=== PATIENT | male | born 1930 | race Caucasian/White ===

== ENCOUNTER → 2017-06-12 | Outpatient (CLI) | payer BC ==
[~2017-06-12] MED LIST: ALFU10TA2 PO; ASPEC81 PO; DUTA0.5C PO; LEVOTHYROXINE PO
[2017-06-12 15:16] LABS: BASO % 1.3 %; BASO ABS # 0.08 K/uL (0-0.2); COMPLETE YES; EOS % 5.9 %; HEMATOCRIT 39.8 % (42-52); IG% 0.2 %; LYMPH % 23.8 %; MEAN CELL VOLUME 93.2 fL (80-100); MEAN CORPUSCULAR HEMOGLOBIN 30.2 pg (25-34); MEAN CORPUSCULAR HGB CONC 32.4 g/dl (32-36); MONO % 11.1 %; NEUT % 57.7 %; PLATELET COUNT 223 K/uL (130-400); RED BLOOD COUNT 4.27 M/uL (4.7-6.1); WHITE BLOOD COUNT 6.31 K/uL (4.8-10.8)
[2017-06-12 15:27] LABS: ALT/SGPT 30 U/L (12-78); AST/SGOT 20 U/L (15-37); BLOOD UREA NITROGEN 23 mg/dl (7-18); BUN/CREATININE RATIO 15.5 (10-20); CALCIUM 8.9 mg/dl (8.5-10.1); CARBON DIOXIDE 26 mmol/L (21-32); CHLORIDE 107 mmol/L (98-107); CREATININE 1.52 mg/dl (0.60-1.40); GLUCOSE 100 mg/dl (70-99); POTASSIUM 3.8 mmol/L (3.5-5.1); SODIUM 142 mmol/L (136-145); URIC ACID 7.9 mg/dl (2.6-7.2)
[2017-06-12 15:37] LABS: ALB/GLOB RATIO 1.2 (0.9-2); ALKALINE PHOSPHATASE 56 U/L (45-117)
== END | disposition home or self-care (01) ==
LOC: C.LABSPEC 14:47
PROVIDERS: ATTEND Internal Medicine
DX: N18.9 Chronic kidney disease, unspecified (principal); M10.9 Gout, unspecified; E03.9 Hypothyroidism, unspecified

== ENCOUNTER → 2017-12-10 | Outpatient (CLI) | payer BC ==
[2017-12-10 12:47] LABS: BASO % 1.4 %; BASO ABS # 0.09 K/uL (0-0.2); EOS % 6.3 %; HEMATOCRIT 41.7 % (42-52); HEMOGLOBIN 13.9 g/dL (14.0-18.0); IG# 0.02 K/uL (0.00-0.02); LYMPH % 25.8 %; LYMPH ABS # 1.64 K/uL (1.2-3.4); MEAN CELL VOLUME 89.1 fL (80-100); MEAN CORPUSCULAR HEMOGLOBIN 29.7 pg (25-34); MEAN CORPUSCULAR HGB CONC 33.3 g/dl (32-36); NEUT % 55.2 %; PLATELET COUNT 216 K/uL (130-400); RED CELL DISTRIBUTION WIDTH CV 14.3 % (11.5-14.5); RED CELL DISTRIBUTION WIDTH SD 46.5 fL (36.4-46.3); WHITE BLOOD COUNT 6.35 K/uL (4.8-10.8)
[2017-12-10 13:05] LABS: HEMOGLOBIN A1C 6.3 % (4.5-5.6)
[2017-12-10 13:09] LABS: ALT/SGPT 27 U/L (12-78); AST/SGOT 21 U/L (15-37); BLOOD UREA NITROGEN 21 mg/dl (7-18); CALCIUM 9.4 mg/dl (8.5-10.1); CARBON DIOXIDE 27 mmol/L (21-32); CHOLESTEROL 225 mg/dl (0-200); CREATININE 1.58 mg/dl (0.60-1.40); GLUCOSE 101 mg/dl (70-99); POTASSIUM 3.8 mmol/L (3.5-5.1); SODIUM 143 mmol/L (136-145); URIC ACID 8.2 mg/dl (2.6-7.2)
[2017-12-10 13:13] LABS: ALKALINE PHOSPHATASE 60 U/L (45-117); LDL CHOLESTEROL (DIRECT) 150 mg/dl; TOTAL PROTEIN 7.3 gm/dl (6.4-8.2)
== END | disposition home or self-care (01) ==
LOC: C.LABSPEC 12:34
PROVIDERS: ATTEND Internal Medicine
DX: N18.9 Chronic kidney disease, unspecified (principal); E78.5 Hyperlipidemia, unspecified; M10.9 Gout, unspecified; R73.9 Hyperglycemia, unspecified

== ENCOUNTER 2019-12-25 09:05 | Observation (INO) ==
[2019-12-25] MEDS ORDERED: SODIUM CHLORIDE 0.9% 500 ML IV ONE (09:34)
[2019-12-25] MEDS ORDERED: cefTRIAXone SODIUM 1,000 MG/50 ML BAG IV STA (09:34)
--- NOTE | 2019-12-25 09:39 | Emergency Department Note ---
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 This started Friday night into Friday. He notes it has been gradually getting more red and swollen. He did see his PCP. He denies any recent trauma. Denies any fevers. He notes it is more painful with range of motion. He describes the pain as a small discomfort. Denies any headaches, change in vision, chest pain, shortness of breath, nausea vomiting or diarrhea. No other exacerbating or remitting factors. He has been trying to elevate it without improvement. ROS: See above HPI for pertinent positives & negatives. A total of 10 systems re viewed and were otherwise negative. PAST MEDICAL HISTORY:See Below PAST SURGICAL HISTORY:See Below FAMILY HISTORY:See Below SOCIAL HISTORY:See Below HOME MEDICATIONS:See Below ALLERGIES:See Below VITALS:See Below PHYSICAL EXAMINATION: GENERAL: Sitting up in bed, alert, well appearing, well nourished, no distress, non-toxic EYE EXAM: normal conjunctiva. OROPHARYNX: no exudate, no erythema, lips, buccal mucosa, and tongue normal and mucous membranes are moist NECK: supple, no nuchal rigidity, no adenopathy, non-tender LUNGS: Clear to auscultation. Normal chest wall mechanics HEART: no murmurs, S1 normal and S2 normal ABDOMEN: abdomen soft, non-tender, normo-active bowel sounds, no masses, no rebound or guarding. BACK: Back is symmetrical on inspection and there is no deformity, no midline tenderness, no CVA tenderness. SKIN: no rashes and no bruising UPPER EXTREMITIES: Full range of motion of right shoulder elbow and wrist. Radial pulses 2 out of 4. Erythema and swelling of the right third digit circumferentially worse on the dorsal surface. Does track below the MCP to the base of the wrist and tracks distally up to the DIP of the fourth digit. It is tender/warm. There is no fluctuance. Does have limited flexion extension at the DIP and PIP. LOWER EXTREMITIES: No pitting edema. NEURO EXAM: Normal sensorium, cranial nerves II-XII grossly intact, normal speech, no gross weakness of arms, no gross weakness of legs. MEDICAL DECISION MAKING: Patient is an 89-year-old male who presents the ER for redness of his right third digit which is now including part of his wrist and his right fourth digit. He denies any fevers. It significantly tender to palpation. Is held in flexion. Moderate amount of pain with extension. Appears to be clinically consistent with the synovitis. There were 2 small vesicles although I favor this is not herpetic daniel. IV was established blood work was obtained. Labs show no significant leukocytosis or anemia. BMP with creatinine 1.5. Patient was given IV Rocephin due to allergies as well as IV vancomycin. I did give him a dose of acyclovir after discussion with orthopedics. They will see him as an inpatient. Discussed with the hospitalist. Patient was admitted for further work-up and IV antibiotics for his tenosynovitis Triage Nursing notes reviewed. Prior medical records reviewed Vital Signs: reviewed and remarkable for hypertension Differential diagnosis: Cellulitis, abscess, MRSA infection, DVT, necrotizing fasciitis, dermatitis, drug eruption, allergic reaction, as well as other pathologies. ER treatment provided: See below Diagnostics interpreted by me: ECG: none Cardiac Monitoring: An order was placed for continuous cardiac monitoring. The monitor shows a rate of 95 with sinus rhythm. Laboratory studies: As stated above and show below. Imaging studies: X-ray of the right third digit was unremarkable. Consultation(s): Discussed with Dr. Klein from [facility] who agreed with admission. Discussed with Dionicio Caldera for admission. ED COURSE: Procedures: none Critical Care: None Past Med/Surg History Social History Preferred Language: German Communication Ability: Effective Billboard Poster Required: No Beliefs That Will Affect Care: None Current Living Situation: Spouse Other Information That Helps Us Care for You: No Feels Safe at Home: Yes Safety Concerns: Feels Safe At This Time Smoking Status: Never smoker Do You Dip or Chew Tobacco: No ; Second Hand Exposure: No ; Tobacco Cessation Education Requested by Patient: No Hx Alcohol Use: Yes Hx Substance Use: No Allergies Allergies Allergy/AdvReac Type Severity Reaction Status Date / Time cat dander Allergy Unknown ` Verified 12/25/19 09:46 Penicillins Allergy Unknown ` Verified 12/25/19 09:46 Sulfa (Sulfonamide Allergy Unknown ` Verified 12/25/19 09:46 Antibiotics) Home Meds Home Medications Medication Instructions Recorded Confirmed allopurinol [Zyloprim] 50 mg PO HS 12/25/19 12/25/19 aspirin 81 mg PO QAM 12/25/19 12/25/19 levothyroxine [Synthroid] 75 mcg PO HS 12/25/19 12/25/19 Results & Data (ED) Vital Signs Vital Signs - 24 hr 12/25/19 09:10 12/25/19 10:50 Temperature 36.8 C Temperature Source Oral Pulse Rate 97 H Pulse Rate [Finger] 85 Respiratory Rate 18 16 Respiratory Depth Normal Blood Pressure 137/77 Blood Pressure [Right Arm] 115/76 Blood Pressure Mean 97 Blood Pressure Mean [Right Arm] 89 Pulse Oximetry 99 97 Oxygen Delivery Method Room Air Room Air Sepsis Recent Fever Within 48 Hours No Sepsis New/Unexplained Change in Mental Status No Sepsis Action Taken by Nursing No Action Required Laboratory Data Result diagrams: 12/25/19 09:45 12/25/19 09:45 Lab Results 12/25/19 12/25/19 Range/Units 09:45 09:45 WBC 8.82 (4.8-10.8) K/uL RBC 4.49 L (4.7-6.1) M/uL Hgb 13.1 L (14.0-18.0) g/dL Hct 40.7 L (42-52) % MCV 90.6 (80-100) fL MCH 29.2 (25-34) pg MCHC 32.2 (32-36) g/dL RDW Std Deviation 49.0 H (36.4-46.3) fL RDW Coeff of Kay 14.6 H (11.5-14.5) % Plt Count 258 (130-400) K/uL MPV 10.5 H (7.4-10.4) fL Immature Gran % (Auto) 0.2 % Neut % (Auto) 77.7 % Lymph % (Auto) 10.9 % [place] % (Auto) 8.3 % Eos % (Auto) 2.4 % Baso % (Auto) 0.5 % Immature Gran # (Auto) 0.02 (0.00-0.02) K/uL Neut # (Auto) 6.86 H (1.4-6.5) K/uL Lymph # (Auto) 0.96 L (1.2-3.4) K/uL [place] # (Auto) 0.73 H (0.11-0.59) K/uL Eos # (Auto) 0.21 (0-0.5) K/uL Baso # (Auto) 0.04 (0-0.2) K/uL Sodium 142 (136-145) mmol/L Potassium 3.8 (3.5-5.1) mmol/L Chloride 110 H (98-107) mmol/L Carbon Dioxide 26 (21-32) mmol/L Anion Gap 6.0 (3-11) BUN 15 (7-18) mg/dl Creatinine 1.52 H (0.6-1.4) mg/dl Est Cr Clr Drug Dosing 26.1 ml/min Est GFR ( Amer) 46.4 Est GFR (Non-Af Amer) 40.0 BUN/Creatinine Ratio 10.1 (10-20) Glucose 206 H (70-99) mg/dl Calcium 9.2 (8.5-10.1) mg/dl Administered Medications Discontinued Medications Acyclovir (Zovirax) 400 mg PO ONE ONE Stop: 12/25/19 11:06 Last Admin: 12/25/19 11:21 Dose: 400 mg Documented by: [id number] Ceftriaxone Sodium (Rocephin) 1,000 mg in 50 mls @ 100 mls/hr IV NOW STA Stop: 12/25/19 10:03 Last Infusion: 12/25/19 10:45 Dose: 0 mls/hr Documented by: [id number] Admin: 12/25/19 10:14 Dose: 100 mls/hr Documented by: [id number] Sodium Chloride (Nss) 500 mls @ 999 mls/hr IV .Q31M ONE Stop: 12/25/19 10:04 Last Infusion: 12/25/19 10:45 Dose: 0 mls/hr Documented by: [id number] Admin: 12/25/19 10:14 Dose: 999 mls/hr Documented by: [id number] Vancomycin HCl 1,000 mg/ (Sodium Chloride) 520 mls @ 200 mls/hr IV NOW ONE Stop: 12/25/19 13:25 Last Admin: 12/25/19 11:07 Dose: 200 mls/hr Documented by: [id number] Discharge Plan Visit Data *Final* Discharge Date/Time: 12/25/19 12:14 Chief Complaint: Finger Pain Stated Complaint: FINGER SWALLON ED Provider: Aaron Sherman Discharge Problem: Tenosynovitis, Cellulitis Patient Disposition: Admitted As Inpatient Discharge Instructions Interventions: ED Discharge Assessment Last Done: 12/25/19 12:14 Discharge Problem: Cellulitis Qualifiers: Site of cellulitis: unspecified site Qualified Code(s): L03.90 - Cellulitis, unspecified
[2019-12-25 09:56] LABS: Basophils # (auto) 0.04 K/uL (0-0.2); Basophils % (auto) 0.5 %; Eosinophils # (auto) 0.21 K/uL (0-0.5); Eosinophils % (auto) 2.4 %; Hematocrit (blood only) 40.7 % (42-52); Hemoglobin 13.1 g/dL (14.0-18.0); Immature Granulocytes # (auto) 0.02 K/uL (0.00-0.02); Immature Granulocytes % (auto) 0.2 %; Lymphocytes # (auto) 0.96 K/uL (1.2-3.4); Lymphocytes % (auto) 10.9 %; Mean Corpuscular Hemoglobin 29.2 pg (25-34); Mean Corpuscular Hgb Conc 32.2 g/dL (32-36); Mean Corpuscular Volume 90.6 fL (80-100); Mean Platelet Volume 10.5 fL (7.4-10.4); Monocytes # (auto) 0.73 K/uL (0.11-0.59); Monocytes % (auto) 8.3 %; Neutrophils # (auto) 6.86 K/uL (1.4-6.5); Neutrophils % (auto) 77.7 %; Platelet Count 258 K/uL (130-400); RDW Coefficient of Variation 14.6 % (11.5-14.5); Red Blood Count 4.49 M/uL (4.7-6.1); White Blood Count 8.82 K/uL (4.8-10.8)
--- NOTE | 2019-12-25 10:01 | XRay Report ---
Right third finger 3 views CLINICAL HISTORY: Right third finger pain COMPARISON: None. DISCUSSION: There is mild soft tissue swelling. No fractures are visualized. There are mild arthritic changes at the level of the third metacarpal phalangeal joint with joint space narrowing. There is a tiny erosion involving the base of the proximal phalanx. IMPRESSION: 1. No acute fractures 2. Soft tissue swelling 3. 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 Electronically signed by: Guero Tony M.D. 12/25/2019 9:59 AM
[2019-12-25 10:12] LABS: BUN Creatinine Ratio 10.1 (10-20); Calcium 9.2 mg/dl (8.5-10.1); Creatinine Clr Calc Pharmacy 26.1 ml/min; Est GFR (African American) 46.4; Potassium 3.8 mmol/L (3.5-5.1)
[2019-12-25] MEDS ORDERED: VANCOMYCIN CONSULT ACTIVE PRN (10:50)
[2019-12-25] MEDS ORDERED: VANCOMYCIN HCL 1,000 MG in SODIUM CHLORIDE 0.9% 500 ML IV ONE (10:50)
[2019-12-25] MEDS ORDERED: ACYCLOVIR 400 MG TAB PO ONE (11:05)
--- NOTE | 2019-12-25 11:19 | History & Physical Report ---
Date of Service December 25, 2019 Assessment & Plan (1) Tenosynovitis: Continue vancomycin and ceftriaxone Elevate right upper extremity Consult orthopedics (2) Gout: Continue allopurinol - recommend he discuss with his PCP regarding dosing given he is still getting flares once/month (3) Hypothyroidism: TSH WNL Continue outpatient dosing levothyroxine (4) DVT prophylaxis: Heparin 5000 units SQ BID Admission and Anticipated Discharge Date Admission Date: 12/25/2019 History of Present Illness Chief Complaint: Right 3rd finger swelling and pain Primary Care Provider: Sonu Colon MD Rodolfo Lee is an 89 year old male with gout and hypothyroidism who presents to the ER with right 3rd finger swelling and erythema since Friday night. He denies any trauma to the finger. Feels it may have been bitten. Gradually getting worse as the week progressed and now spreading down the back of this hand. Saw PCP on Friday but no specific diagnosis at that time and he was not put on antibiotics. Increased pain with decreased ROM in MCP and PIPJ. Normal sensation in finger tips. No fevers or chills. never had anything like this previously. On no immunosuppressant medication. Patient is left hand dominant. Allergies Allergy/AdvReac Type Severity Reaction Status Date / Time cat dander Allergy Unknown ` Verified 12/25/19 09:46 Penicillins Allergy Unknown ` Verified 12/25/19 09:46 Sulfa (Sulfonamide Allergy Unknown ` Verified 12/25/19 09:46 Antibiotics) Home Medications Home Medications Medication Instructions Recorded Confirmed Type allopurinol [Zyloprim] 50 mg PO HS 12/25/19 12/25/19 History aspirin 81 mg PO [facility] 12/25/19 12/25/19 History levothyroxine [Synthroid] 75 mcg PO HS 12/25/19 12/25/19 History Past Med/Surg History Medical History (Updated 12/25/19 @ 13:44 by Dionicio Caldera MD) Gout Hypothyroidism Social History Preferred Language: Brazilian Communication Ability: Effective Matte Cutter Required: No Beliefs That Will Affect Care: None Current Living Situation: Spouse Other Information That Helps Us Care for You: No Feels Safe at Home: Yes Safety Concerns: Feels Safe At This Time Smoking Status: Never smoker Do You Dip or Chew Tobacco: No ; Second Hand Exposure: No ; Tobacco Cessation Education Requested by Patient: No Hx Alcohol Use: Yes Hx Substance Use: No Review of Systems Review of Systems: All systems reviewed & are unremarkable except as noted in HPI & below Physical Exam Constitutional: WD/WN, vitals as above Eyes: + anicteric sclerae; normal pupil size Respiratory: normal respiratory effort, lungs clear to auscultation Cardiovascular: Rate/Rhythm: regular rate and regular rhythm (occasional skipped beat) Vessels: no JVD Extremities: normal capillary refill Gastrointestinal (Abdomen): normal bowel sounds, soft, nontender, no hepatosplenomegaly Musculoskeletal: Erythema and swelling appears to originate from right 3rd PIPJ which extends down extensor tendon to 5 cm proximal to wrist. No vesicles present. Normal sensation in finger tip. Cap refill < 2s in finger tip Neurologic: moves all extremities and awake Psychiatric: A+Ox3, euthymic affect Results & Data Results & Data ([facility]) Vital Signs (Past 12 Hours) Vital Signs Temp Pulse Pulse Resp BP BP Pulse Ox 12/25/19 10:50 85 16 115/76 97 12/25/19 09:10 36.8 C 97 H 18 137/77 99 Diagnostic Findings Right third finger 3 views IMPRESSION: 1. No acute fractures 2. Soft tissue swelling 3. 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
[2019-12-25] MEDS ORDERED: PNEUMOCOCCAL ADMINISTRATION CHARGE ONE (11:49)
[2019-12-25] MEDS ORDERED: PNEUMOCOCCAL POLYSACCHARIDES 25 MCG/0.5 ML VIAL/SYR IM ONE (11:49)
[2019-12-25] MEDS ORDERED: VANCOMYCIN HCL 1,250 MG in SODIUM CHLORIDE 0.9% 250 ML IV STA (13:17)
[2019-12-25] MEDS ORDERED: ACETAMINOPHEN 325 MG TAB PO PRN (13:38)
[2019-12-25] MEDS ORDERED: POLYETHYLENE (MIRALAX) 17 GM PACK PO PRN (13:38)
[2019-12-25] MEDS ORDERED: GLUCOSE 10 TABS/TUBE PO PRN (13:51)
[2019-12-25] MEDS ORDERED: GLUCOSE 40% GEL 15 GM TUBE PO PRN (13:51)
[2019-12-25] MEDS ORDERED: GLUCAGON FOR INJ 1 MG VIAL SQ PRN (13:51)
[2019-12-25] MEDS ORDERED: DEXTROSE 50% 50 ML SYRINGE IV PRN (13:51)
[2019-12-25] MEDS ORDERED: CARBOHYDRATES FOR HYPOGLYCEMIA PO PRN (13:51)
--- NOTE | 2019-12-25 14:13 | Pharmacy Report ---
Pharmacy Abx Initial Consult - Date of Service December 25, 2019 - Pharmacy Dosing Scope Date of Consult: 12/25/19 Consultation requested by: Dr. Caldera Pharmacy is consulted to initiate Vancomycin IV dosing therapy, order appropriate labs and adjust drug dose/frequency. - Subjective The patient is a 89 year old M admitted on 12/25/19 11:18. - Objective Height: 5 ft 6 in Weight: 56 kg Vital Signs (Past 12hrs): Vital Signs Temp Pulse Pulse Resp BP BP Pulse Ox 12/25/19 13:26 36.5 C 96 H 16 150/82 H 91 12/25/19 11:56 68 18 134/84 95 12/25/19 10:50 85 16 115/76 97 12/25/19 09:10 36.8 C 97 H 18 137/77 99 Lab Results (24hrs): Laboratory Tests (24 Hours) 12/25/19 12/25/19 09:45 09:45 WBC 8.82 Neut # (Auto) 6.86 H Creatinine 1.52 H Est Cr Clr Drug Dosing 26.1 - Assessment & Plan Assessment 89 year old M started on Vancomycin for Tenosynovitis. Patient with allergies to both PCN and Sulfa. Renal function is poor. Crcl only 26. Plan Vancomycin IV * Estimated PK Parameters: Vd 0.7 L/kg, Roger 0.026 hr-1, t1/2 27 hr * Loading dose: 1000 mg (18 mg/kg) IV x 1 given at 1107 today in the ED. * Maintenance dose was not ordered since Scr is elevated at 1.52. * If renal function improves and is at baseline will consider starting a maintenance dose. * Goal trough level: 15-20 mcg/mL * Random level ordered for 12/24 with AM labs. * A less than traditional dose and/or extended dosing interval has/have been selected due to likelihood of drug accumulation in patient with possibly CARMELA. Pharmacy will continue to follow and will adjust dose/frequency as necessary. Thank you.
[2019-12-25] MEDS: INSULIN ASPART 100 UNITS/ML 3 ML PEN SC SCH ×2 (18:07→20:34)
[2019-12-25] MEDS: allopurinoL 100 MG TAB PO SCH (20:28)
[2019-12-25] MEDS: LEVOTHYROXINE SODIUM 25 MCG TABLET PO SCH (20:28)
[2019-12-25] MEDS: HEPARIN SOD 5,000 UNIT/0.5 ML VIAL SQ SCH (20:34)
[2019-12-26 05:12] LABS: Basophils # (auto) 0.03 K/uL (0-0.2); Basophils % (auto) 0.4 %; Eosinophils # (auto) 0.34 K/uL (0-0.5); Eosinophils % (auto) 4.7 %; Hematocrit (blood only) 35.9 % (42-52); Hemoglobin 11.7 g/dL (14.0-18.0); Immature Granulocytes # (auto) 0.02 K/uL (0.00-0.02); Immature Granulocytes % (auto) 0.3 %; Lymphocytes # (auto) 1.32 K/uL (1.2-3.4); Lymphocytes % (auto) 18.4 %; Mean Corpuscular Hgb Conc 32.6 g/dL (32-36); Mean Corpuscular Volume 88.9 fL (80-100); Mean Platelet Volume 10.6 fL (7.4-10.4); Monocytes # (auto) 0.77 K/uL (0.11-0.59); Monocytes % (auto) 10.7 %; Neutrophils # (auto) 4.71 K/uL (1.4-6.5); Neutrophils % (auto) 65.5 %; Platelet Count 248 K/uL (130-400); RDW Coefficient of Variation 14.3 % (11.5-14.5); RDW Standard Deviation 47.1 fL (36.4-46.3); Red Blood Count 4.04 M/uL (4.7-6.1); White Blood Count 7.19 K/uL (4.8-10.8)
[2019-12-26 05:31] LABS: BUN Creatinine Ratio 10.9 (10-20); Calcium 8.5 mg/dl (8.5-10.1); Est GFR (African American) 59.4; Est GFR (Non-African American) 51.2; Potassium 3.9 mmol/L (3.5-5.1)
--- NOTE | 2019-12-26 07:48 | Electrocardiogram Report ---
Test Reason : Blood Pressure : / mmHG Vent. Rate : 066 BPM Atrial Rate : 066 BPM P-R Int : 162 ms QRS Dur : 110 ms QT Int : 422 ms P-R-T Axes : 048 -64 069 degrees QTc Int : 442 ms Sinus rhythm with Premature atrial complexes in a pattern of bigeminy Left axis deviation Septal infarct , age undetermined Abnormal ECG When compared with ECG of 03-DEC-2011 09:43, Septal infarct is now Present Nonspecific T wave abnormality no longer evident in Inferior leads Confirmed by Erik Rodas ([id number]) on 12/26/2019 7:48:16 AM Referred By: REFERRED SELF Confirmed By:Erik Rodas
--- NOTE | 2019-12-26 07:51 | Electrocardiogram Report ---
Test Reason : Blood Pressure : / mmHG Vent. Rate : 078 BPM Atrial Rate : 078 BPM P-R Int : 168 ms QRS Dur : 108 ms QT Int : 394 ms P-R-T Axes : 063 -70 079 degrees QTc Int : 449 ms Sinus rhythm with marked sinus arrhythmia with occasional Premature ventricular complexes Left axis deviation Septal infarct , age undetermined Abnormal ECG When compared with ECG of 03-DEC-2011 09:43, Premature ventricular complexes are now Present Septal infarct is now Present Confirmed by Erik Rodas ([id number]) on 12/26/2019 7:50:51 AM Referred By: REFERRED SELF Confirmed By:Erik Rodas
[2019-12-26] MEDS: ASPIRIN 81 MG ECTAB PO SCH (08:37)
[2019-12-26] MEDS ORDERED: VANCOMYCIN HCL 1,250 MG in SODIUM CHLORIDE 0.9% 250 ML IV ONE (09:00)
[2019-12-26] MEDS: HEPARIN SOD 5,000 UNIT/0.5 ML VIAL SQ SCH ×2 (09:03→21:36)
[2019-12-26] MEDS: INSULIN ASPART 100 UNITS/ML 3 ML PEN SC SCH ×2 (09:03→13:05)
--- NOTE | 2019-12-26 10:34 | Consultation Report ---
DATE OF CONSULTATION: 12/26/2019 HISTORY OF PRESENT ILLNESS: This is an 89-year-old gentleman seen at the request of Dr. Dionicio Caldera for right hand pain and swelling. Apparently, the patient is in this typical state of health on last Friday night. He then noticed on Friday that he had pain and swelling of his right hand, particularly the third and fourth digits. He noticed that it worsened throughout the week. He was seen by his primary care physician on Friday; however, there is no specific diagnosis made at that time and he was not put on any antibiotics at that time. He had increasing pain with decreased range of motion in the MCP and PIP joints of the third digit and then some more associated fourth digit soreness. He had a history of gouty flares on occasion; however, never to the hand in one specific location. The patient also surmises that he may have had an inoculation by an insect bite because he has no other ideas as to how he may have injured the digit. No trauma, no excessive labor at work. He had no previous episodes and no skin lesions. PAST MEDICAL HISTORY: Gout, hypothyroidism. PAST SURGICAL HISTORY: Noncontributory. ALLERGIES: CAT DANDER, PENICILLIN AND SULFA ANTIBIOTICS. MEDICATIONS: Allopurinol 50 mg p.o. at bedtime, aspirin 81 mg q.a.m. and Synthroid 75 mcg p.o. at bedtime. SOCIAL HISTORY: He is and lives with his spouse. He denies tobacco or drug use. He drinks occasionally. 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 PHYSICAL EXAMINATION: This is an 89-year-old gentleman, sitting upright in a bedside chair. He is alert and oriented x3. Speech clear and fluent. Affect is appropriate. Examination of the right upper extremity demonstrates skin is slightly erythematous over the dorsum of the third digit and the dorsum of the fourth digit adjacent to the MCP and the PIP, both the third and fourth digits. No obvious skin breakdown or skin lesions. There are 2 small areas of a wheal reaction, possibly an inoculation site on the dorsum of the third digit over the middle phalanx that blanches upon compression. The third and fourth digits are slightly hyperemic. Radial pulses 2/4. Sensation is intact. Nail beds and nails are normal anatomy. He had difficulty with flexion, extension of the third and fourth digits; however, there is no evidence of pain on passive stretch of the third or fourth digits. Direct palpation causes irritation on the dorsum of the hand over the third and fourth digits. There is swelling; however, there is no evidence of sausage consistency of the third and fourth digits. Palpation of the flexor sheath at the level of the MCP and proximal produces no significant discomfort of the third or fourth flexor tendons. RADIOGRAPHS: Demonstrate some early to moderate degenerative changes, particularly in the distal interphalangeal joints and there is also small erosion, which is a pauciarticular erosion at the MCP joint of the third digit. No obvious fractures. IMPRESSION: 1. Right third finger cellulitis. 2. Right fourth finger cellulitis. 3. Gout. RECOMMENDATION: Continue IV antibiotics. Continue observation. Doubt surgical intervention at this time; however, should a coalescence or abscess form, he would be a candidate for surgical incision and drainage. Thank you for the opportunity to consult in the care of this patient. We will follow with you.
[2019-12-26] MEDS: cefTRIAXone SODIUM 1,000 MG in DEXTROSE 5% 50 ML IV SCH (10:53)
--- NOTE | 2019-12-26 12:13 | Hospitalist Progress Note ---
Date of Service December 26, 2019 Assessment & Plan (1) Tenosynovitis: Continue vancomycin and ceftriaxone Continue elevation of right upper extremity as able Appreciate orthopedics consult - agree no surgical intervention warranted at present (2) Gout: Continue allopurinol - recommend he discuss with his PCP regarding dosing given he is still getting flares once/month (3) Hypothyroidism: TSH WNL Continue outpatient dosing levothyroxine (4) DVT prophylaxis: Heparin 5000 units SQ BID Admission and Anticipated Discharge Date Admission Date: December 25, 2019 Anticipated date of discharge: 12/27/19 Subjective No fevers or chills. Slightly annoyed about being woken up at night for vital signs. Feels erythematous area is improving. Review of Systems Review of Systems: All systems reviewed & are unremarkable except as noted in HPI & below Physical Exam Constitutional: WD/WN, vitals as above Eyes: + anicteric sclerae; normal pupil size Respiratory: normal respiratory effort Cardiovascular: Extremities: normal capillary refill Skin: Improving erythema surrounding 3rd digit originating from just distal to PIPJ. Only very mild erythema remains proximal to wrist. Neurologic: moves all extremities and awake Psychiatric: A+Ox3, euthymic affect Results & Data Results & Data ([facility]) Vital Signs (Past 12 Hours) Vital Signs Temp Pulse Resp BP Pulse Ox 12/26/19 07:02 36.5 C 74 18 160/77 H 92 PG Care Time/CCT Total # of Minutes Spent Total Time Spent with Patient: Total time spent is greater than 50% in coordination of care (as documented) at patient's floor/unit and/or counseling patient: Coding Level of Care Code 86993 Subseq Obs Care Lvl 2 Diagnoses Tenosynovitis M65.9 Gout M10.9 Hypothyroidism E03.9 DVT prophylaxis Z29.9
--- NOTE | 2019-12-26 14:11 | Pharmacy Report ---
Pharmacy Abx Dose Progress Nt - Date of Service December 26, 2019 - Pharmacy Dosing Scope The patient received the following antimicrobial agents per Pharmacy consult: Vancomycin 1000 mg IV x 1 dose 11 AM yesterday. Vancomycin 1250 mg IV x 1 dose at 0830 AM today. - Objective Vital Signs (Past 12hrs): Vital Signs Temp Pulse Resp BP Pulse Ox 12/26/19 07:02 36.5 C 74 18 160/77 H 92 Lab Results (24hrs): Laboratory Tests (24 Hours) 12/26/19 12/26/19 12/26/19 04:50 04:50 04:50 WBC 7.19 Neut # (Auto) 4.71 Creatinine 1.24 Est Cr Clr Drug Dosing 32.0 Random Vancomycin 3.9 - Assessment & Plan Assessment 89 year old M receiving Vancomycin for treatment of Tenosynovitis of 3rd R finger. Day #2 of antimicrobial therapy Patient received one dose of Vancomycin 1000 mg IV yesterday at 1107. Random level with AM labs today was 3.9 which is low. Therefore, patient was ordered Vancomycin 1250 mg IV x 1 dose today AM. Renal function slightly improved compared to yesterday. CrCl = 32 ml/min. Will order maintenance Vancomycin dose based on AUC nomogram. Laboratory Tests 12/26/19 04:50 Random Vancomycin 3.9 Plan Vancomycin IV * With Crcl = 32 today, will continue with Vancomycin maintenance dosing using AUC nomogram. * Patient meets criteria for vancomycin AUC dosing nomogram AUC/OPAL is the preferred PK/PD target for vancomycin Target AUC/OPAL = 400-600 AUC guided dosing is effective and associated with decreased risk of nephrotoxicity * Trough level ordered for: 6/2 before dose at 0900 to confirm patient is not accumulating Vancomycin. Pharmacy will continue to follow and will adjust dose/frequency as necessary. Thank you.
[2019-12-26] MEDS: LEVOTHYROXINE SODIUM 25 MCG TABLET PO SCH (21:36)
[2019-12-26] MEDS: allopurinoL 100 MG TAB PO SCH (21:36)
[2019-12-27 07:11] LABS: Estimated Average Glucose 134 mg/dl; Hemoglobin A1C 6.3 % (4.5-5.6)
[2019-12-27] MEDS: ASPIRIN 81 MG ECTAB PO SCH (08:19)
[2019-12-27] MEDS: HEPARIN SOD 5,000 UNIT/0.5 ML VIAL SQ SCH (08:19)
[2019-12-27] MEDS ORDERED: VANCOMYCIN HCL 1,000 MG in SODIUM CHLORIDE 0.9% 250 ML IV SCH (09:00)
[2019-12-27] MEDS: cefTRIAXone SODIUM 1,000 MG in DEXTROSE 5% 50 ML IV SCH (10:40)
--- NOTE | 2019-12-27 12:21 | Orthopedic Progress Note ---
Date of Service December 27, 2019 Assessment & Plan (1) Cellulitis: Progressively getting better with IV antibiotics. Pt seen by Dr Knight as well. Plan for discharge today with follow up this week with Dr Mijares. Admission and Anticipated Discharge Date Admission Date: December 25, 2019 Anticipated date of discharge: 12/27/19 Subjective Pt sitting in chair at bedside. States that overall, his hand/finger is getting better. No new complaints. Physical Exam Physical Exam: Darkened erythema noted over mainly the 3rd finger. Continues to have 2 very small wheals that apparently have not gotten any bigger over the dorsum of the middle phalanx. Less swelling of the finger noted. Able to bend the finger a little better today. Cap refill < 2 seconds. Good sensation. Results & Data ([facility]) Vital Signs (Past 12 Hours) Vital Signs Temp Pulse Resp BP BP Pulse Ox 12/27/19 12:11 36.5 C 65 16 145/74 H 142/72 H 94 12/27/19 07:35 36.5 C 65 16 145/74 H 94 (1) Cellulitis Site of cellulitis: unspecified site Qualified Code(s): L03.90 - Cellulitis, unspecified
--- NOTE | 2020-01-02 23:47 | Discharge Summary ---
Date of Service December 27, 2019 Admission HPI Per Admitting Provider Rodolfo Lee is an 89 year old male with gout and hypothyroidism who presents to the ER with right 3rd finger swelling and erythema since Friday night. He denies any trauma to the finger. Feels it may have been bitten. Gradually getting worse as the week progressed and now spreading down the back of this hand. Saw PCP on Friday but no specific diagnosis at that time and he was not put on antibiotics. Increased pain with decreased ROM in MCP and PIPJ. Normal sensation in finger tips. No fevers or chills. never had anything like this previously. On no immunosuppressant medication. Patient is left hand dominant. Principal Diagnosis acute cellulitis Discharge Exam Constitutional: WD/WN, vitals as above Eyes: + anicteric sclerae; normal pupil size Respiratory: normal respiratory effort Cardiovascular: Extremities: normal capillary refill Skin: Improving erythema surrounding 3rd digit originating from just distal to PIPJ. Only very mild erythema remains proximal to wrist. Neurologic: moves all extremities and awake Psychiatric: A+Ox3, euthymic affect Discharge Data Allergies Allergy/AdvReac Type Severity Reaction Status Date / Time cat dander Allergy Unknown ` Verified 12/25/19 09:46 Penicillins Allergy Unknown ` Verified 12/26/19 12:08 Sulfa (Sulfonamide Allergy Unknown ` Verified 12/25/19 09:46 Antibiotics) Consultations 12/25/19 11:05 ED Decision to Admit Stat 12/25/19 13:49 Consult Orthopedic Surgery Routine Hospital Course (1) Cellulitis: initially onvancomycin and ceftriaxone Continue elevation of right upper extremity as able Appreciate orthopedics consult - agree no surgical intervention warranted at present will discharge on oral antibiotics (2) Tenosynovitis: ruled out by ortho (3) Gout: Continue allopurinol - recommend he discuss with his PCP regarding dosing given he is still getting flares once/month (4) Hypothyroidism: TSH WNL Continue outpatient dosing levothyroxine (5) DVT prophylaxis: Heparin 5000 units SQ BID Total Time Total Time Spent Total Time Spent (In Minutes): 32 Discharge Plan Discharge Items Patient Disposition: Home - Self-Care Reason For Visit: TENOSYNOVITIS Discharge Diagnosis: cellulitis Activity: Resume your previous activity Non-emergency contact: Primary Care Provider Call non-emergency contact if: you have any medication questions Follow-up/Referrals: Sonu Colon MD [Primary Care Provider] - 12/31/19 1:30 pm Derick Mijares M.D. [Physician] - 12/28/19 12:00 pm (Follow up appointment this week. Please wear mask to appointment) Diet: Regular Addtl Attending Provider Instructions: You have been hospitalized for an acute medical problem. During your stay at [facility], we have made an effort to correct the problem that brought you to the hospital while keeping you as comfortable as possible. Medications were used to bring your condition under control and your discharge instructions will include directions for any medications you should take after leaving the hospital. Please make sure you see your Primary Care Provider as part of your follow up plan. Patient needs PCP and Ortho within next 3 days (before friday). Continue antibiotics for 10 days. Pending Studies at Discharge: No Stand-Alone Forms: My [facility], Smoking Cessation Medications and DC Order Prescriptions: New cefuroxime axetil 500 mg tablet 500 mg PO BID 10 Days Qty: 20 RF: 0 metronidazole [Flagyl] 500 mg tablet 500 mg PO Q8H 10 Days Qty: 30 RF: 0 Continued allopurinol [Zyloprim] 100 mg tablet 50 mg PO HS RF: 0 aspirin 81 mg Tablet,Delayed Release (Dr/Ec) 81 mg PO QAM RF: 0 levothyroxine [Synthroid] 75 mcg tablet 75 mcg PO HS RF: 0 Discharge Orders: Discharge Order (Routine); Ordered 12/27/19 Ordered By: Ilya Nixon Admission Data Admit Date/Time: 12/25/19 11:18 Attending Provider: Ilya Nixon Admit Provider: Dionicio Caldera Primary Care Provider: Sonu Colon Other Providers: Chandan Franklin Other Interventions: Discharge Summary Assessment (RN) Last Done: 12/27/19 12:11 DC Date/Time DO NOT enter until pt leaves facility: 12/27/19 13:54 Coding Level of Care Code 45376 OBS Care - Discharge Diagnoses Cellulitis L03.90 Site of cellulitis: unspecified site Tenosynovitis M65.9 Gout M10.9 Hypothyroidism E03.9 DVT prophylaxis Z29.9
== END 2019-12-27 13:54 | disposition home or self-care (01) ==
LOC: ED 09:05 → 3N 09:05 → SUATTDRO 11:18 → 3N 12:14